=== PATIENT | female | born 1960 | race Caucasian/White ===

== ENCOUNTER 2017-08-08 18:15 | Inpatient (IN) | payer BC ==
[2017-08-08] MEDS ORDERED: LORazepam 1 MG TAB PO PRN (22:15)
[2017-08-08] MEDS ORDERED: MAGNESIUM HYDROXIDE SUSP 30 ML CUP PO PRN (22:15)
[2017-08-08] MEDS ORDERED: LORazepam 2 MG/ML VIAL IM PRN (22:15)
[2017-08-08] MEDS ORDERED: ALUMINUM/MAGNESIUM/SIMETH 30 ML CUP PO PRN (22:15)
[2017-08-08 23:02] VITALS: BP 142/89; PULSE 90; RESP 18; TEMP 96.9; O2SAT 96
[2017-08-09] MEDS ORDERED: NICOTINE 21 MG/24 HR PATCH T-DERMAL SCH (09:00)
[2017-08-09] MEDS: ACETAMINOPHEN 325 MG TAB PO PRN ×2 (09:54→13:43)
[2017-08-09 11:41] LABS: BICARBONATE 25.7 MEQ/L (21.0-32.0); BLOOD UREA NITROGEN 9 MG/DL (7-18); CALCIUM 8.9 MG/DL (8.5-10.1); CHLORIDE 102 MEQ/L (98-107); CREATININE 0.87 MG/DL (0.50-1.00); GLOMERULAR FILTRATION RATE 67 ML/MIN (>89); GLUCOSE,RANDOM 111 MG/DL (74-106); SODIUM (NA) 137 MEQ/L (136-145)
[2017-08-09 11:43] LABS: CHOLESTEROL 187 MG/DL (120-200)
[2017-08-09 11:46] LABS: CHOLESTEROL/ HDL RATIO 5.22 RATIO; HDL CHOLESTEROL 35.8 MG/DL (40.0-60.0); LDL CHOLESTEROL 120 MG/DL (0-99); TRIGLYCERIDES 157 MG/DL (42-150)
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
[2017-08-09] MEDS ORDERED: ACETAMIN 325 MG/BUTALBITAL 50 MG/CAFFEINE 40 MG TAB PO PRN (13:00)
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
[2017-08-09 18:18] LABS: HEMOGLOBIN A1C 5.5 % (4.3-6.0)
[2017-08-09] MEDS ORDERED: REMOVE OLD NICOTINE PATCH T-DERMAL SCH (21:00)
== END 2017-08-09 18:00 | disposition home or self-care (01) | DRG 882 ==
LOC: H270 21:20 → H260 08-09 11:00
PROVIDERS: ADMIT Psychiatry & Neurology Psychiatry; ATTEND Psychiatry & Neurology Psychiatry
DX: F43.12 Post-traumatic stress disorder, chronic (principal); I11.0 Hypertensive heart disease with heart failure; I50.9 Heart failure, unspecified; M17.12 Unilateral primary osteoarthritis, left knee; E03.9 Hypothyroidism, unspecified; I65.22 Occlusion and stenosis of left carotid artery; F32.9 Major depressive disorder, single episode, unspecified; Z62.810 Personal history of physical and sexual abuse in childhood; Z86.73 Personal history of transient ischemic attack (TIA), and cerebral infarction without residual deficits; Z91.030 Bee allergy status; Z91.5 Personal history of self-harm
CPT/HCPCS: 80048; 80061; 83036